=== PATIENT | female | born 1955 | race Two or more races ===

== ENCOUNTER 2019-04-17 16:15 | Inpatient (IN) | payer OTHER ==
[~2019-04-17] VITALS: Ht 152.4 cm; Wt 64.9 kg
[2019-05-23] MEDS ORDERED: METFORMIN HCL500 MG PO (09:44)
[2019-05-23] MEDS ORDERED: VERAPAMIL SR120 MG PO (09:44)
[2019-06-02] MEDS ORDERED: INTESTINEX680 M1 PO (10:31)
[2019-06-02] MEDS ORDERED: PERCOCET 5-3251 EACH PO (10:31)
[2019-06-02] MEDS ORDERED: OMEPRAZOLE20 MG PO (10:31)
== END 2019-06-02 11:52 | disposition home or self-care (01) | DRG 330 ==
LOC: SURG 05-23 09:00 → O/R 05-30 09:20 → SURG 05-30 09:20
PROVIDERS: ADMIT Surgery
PROC: 0DTJ4ZZ Resection of Appendix, Percutaneous Endoscopic Approach (ICD-10-PCS; 2019-05-30)
PROC: 0DTF4ZZ Resection of Right Large Intestine, Percutaneous Endoscopic Approach (ICD-10-PCS; principal; 2019-05-30 08:15)
DX: D12.3 Benign neoplasm of transverse colon (principal); K35.890 Other acute appendicitis without perforation or gangrene; R19.4 Change in bowel habit; D37.4 Neoplasm of uncertain behavior of colon; I11.9 Hypertensive heart disease without heart failure; E11.9 Type 2 diabetes mellitus without complications; Z79.4 Long term (current) use of insulin; D69.59 Other secondary thrombocytopenia